=== PATIENT | female | born 2000 | race Caucasian/White ===

== ENCOUNTER 2019-07-21 23:26 | Emergency (ER) | payer OTHER ==
[~2019-07-21] VITALS: Ht 157.5 cm; Wt 77.1 kg
[2019-07-22 01:38] VITALS: BP 113/63
[2019-07-22] MEDS ORDERED: MOBIC15 MG PO (01:42)
== END 2019-07-22 02:00 | disposition home or self-care (01) ==
LOC: ER 23:26
DX: S83.91XA Sprain of unspecified site of right knee, initial encounter (principal); X58.XXXA Exposure to other specified factors, initial encounter; Y93.89 Activity, other specified; Y92.89 Other specified places as the place of occurrence of the external cause; Y99.8 Other external cause status